=== PATIENT | female | born 1970 | race African-American/Black ===

== ENCOUNTER 2020-08-25 06:55 | Emergency (ER) | payer OTHER ==
[~2020-08-25] VITALS: Ht 160 cm; Wt 59.1 kg
[2020-08-25 07:13] VITALS: TEMP 98.1
[2020-08-25] MEDS ORDERED: VTAMINC250TA PO (07:16)
[2020-08-25] MEDS ORDERED: PROFERRIN ES12 MG PO (07:16)
[2020-08-25] MEDS ORDERED: NORCO 325 MG-51 TAB PO (09:09)
[2020-08-25 09:59] VITALS: BP 124/84; PULSE 81
== END 2020-08-25 09:59 | disposition home or self-care (01) ==
LOC: COL.ER 06:55
DX: T23.201A Burn of second degree of right hand, unspecified site, initial encounter (principal); X12.XXXA Contact with other hot fluids, initial encounter; Z91.040 Latex allergy status